=== PATIENT | female | born 1980 | race African-American/Black ===

== ENCOUNTER 2017-03-25 09:16 | Emergency (ER) | payer MEDICARE, MEDICAID ==
[~2017-03-25] VITALS: Ht 165.1 cm; Wt 55.0 kg
[~2017-03-25 09:16] MED LIST: DIVA500T3; QUET400T
[2017-03-25 09:33] VITALS: BP 149/104
== END 2017-03-25 14:56 | disposition left against medical advice (07) ==
LOC: ER 14:48
DX: Z53.21 Procedure and treatment not carried out due to patient leaving prior to being seen by health care provider (principal)

== ENCOUNTER 2017-04-14 20:51 | Emergency (ER) | payer MEDICARE, MEDICAID ==
[~2017-04-14] VITALS: Ht 172.7 cm; Wt 68.0 kg
[2017-04-14 20:56] VITALS: BP 148/98
== END 2017-04-15 04:09 | disposition left against medical advice (07) ==
LOC: ER 21:02
DX: R53.1 Weakness (principal); Z53.21 Procedure and treatment not carried out due to patient leaving prior to being seen by health care provider

== ENCOUNTER 2017-04-15 00:14 | Emergency (ER) | payer MEDICARE, MEDICAID | END 2017-04-15 07:38 | disposition left against medical advice (07) | LOC: ER 07:37 | DX: R07.9 Chest pain, unspecified (principal); Z53.21 Procedure and treatment not carried out due to patient leaving prior to being seen by health care provider ==

== ENCOUNTER 2017-08-16 22:51 | Emergency (ER) | payer MEDICARE, MEDICAID ==
[~2017-08-16] VITALS: Ht 170.2 cm; Wt 4.0 kg
[2017-08-16] MEDS ORDERED: SODIUM CHLORIDE 0.9% 1,000 ML IV ONE (23:47)
[2017-08-17] MEDS ORDERED: LORAZEPAM 2MG/ML CPJ IV ONE
[2017-08-17] MEDS ORDERED: DIPHENHYDRAMINE 50MG/ML VIAL IV ONE
[2017-08-17 01:13] LABS: CLARITY URINE CLEAR (CLEAR); COLOR URINE YELLOW (YELLOW); KETONES URINE NEGATIVE (NEGATIVE); LEUKOCYTE ESTERASE URINE NEGATIVE (NEGATIVE); NITRITE URINE NEGATIVE (NEGATIVE); OCCULT BLOOD URINE NEGATIVE (NEGATIVE); PH URINE 6.5 (4.5-8.0); PROTEIN URINE NEGATIVE (NEGATIVE); SPECIFIC GRAVITY URINE 1.009 (1.005-1.030); UROBILINOGEN URINE 0.2 E.U./dL (0.2-1.0)
[2017-08-17 01:31] LABS: BASOPHILS % 1.5 % (0.0-2.0); EOSINOPHILS % 0.6 % (0.0-5.0); HEMOGLOBIN. 7.7 g/dL (12.0-16.0); LYMPHOCYTES % 32.6 % (20.0-50.0); MEAN CORPUSCULAR HEMOGLOBIN 20.6 pg (28.0-32.0); MEAN CORPUSCULAR VOLUME 69.2 fL (81.0-99.0); MEAN PLATELET VOLUME 7.7 fl (7.4-10.4); MONOCYTES % 10.4 % (2.0-8.0); NEUTROPHILS % 54.9 % (40.0-76.0); PLATELET 227 x1000/uL (130-400); RED BLOOD CELL COUNT 3.75 mill/uL (4.2-5.4); RED CELL DISTRIBUTION WIDTH 23.8 % (11.6-14.6)
[2017-08-17 01:47] LABS: HCG SCREEN NEGATIVE
[2017-08-17 02:02] LABS: CARBON DIOXIDE 24 mEq/L (21-32); CHLORIDE 110 mEq/L (98-107); ETHANOL BLOOD 144 mg/dL
[2017-08-17 02:31] LABS: *AMPHETAMINES SCREEN URINE NEGATIVE (NEGATIVE); *BARBITURATES SCREEN URINE NEGATIVE (NEGATIVE); *BENZODIAZEPINES SCREEN URINE NEGATIVE (NEGATIVE); *COCAINE SCREEN URINE NEGATIVE (NEGATIVE); CANNABINOID URINE SCREEN NEGATIVE (NEGATIVE); METHADONE URINE SCREEN NEGATIVE (NEGATIVE); OPIATES URINE SCREEN NEGATIVE (NEGATIVE); PHENCYCLIDINE URINE SCREEN PRESUMTIVE POSITIVE (NEGATIVE)
[2017-08-17 10:34] VITALS: BP 138/59
== END 2017-08-17 11:25 | disposition home or self-care (01) ==
LOC: ER 23:05
DX: F10.129 Alcohol abuse with intoxication, unspecified (principal); Y90.6 Blood alcohol level of 120-199 mg/100 ml
CPT/HCPCS: 36415; 80053; 80305; 80307; 80329; 81003; 84703; 85025; 96361; 96374; 96375; 99285; G0482; J1200; J2060; J7030; A4315

== ENCOUNTER 2020-01-12 15:29 | Emergency (ER) | payer MEDICARE, MEDICAID ==
[~2020-01-12] VITALS: Ht 162.6 cm; Wt 56.0 kg
[2020-01-12 15:30] VITALS: BP 126/72
[2020-01-12] MEDS ORDERED: LIDOCAINE HCL 1% 20ML VIAL (Pyxis) INJ INFIL ONE (16:00)
== END 2020-01-12 16:55 | disposition left against medical advice (07) ==
LOC: ER 15:29
DX: L60.0 Ingrowing nail (principal)
CPT/HCPCS: 99283

== ENCOUNTER 2020-12-16 06:55 | Emergency (ER) | payer MEDICARE, MEDICAID ==
[~2020-12-16] VITALS: Ht 170.2 cm; Wt 91.0 kg
[2020-12-16] MEDS ORDERED: IBUPROFEN 800MG TABLET PO ONE (07:45)
[2020-12-16 08:12] VITALS: BP 132/85
== END 2020-12-16 08:43 | disposition left against medical advice (07) ==
LOC: ER 06:59
DX: M79.89 Other specified soft tissue disorders (principal); D64.9 Anemia, unspecified; Z79.899 Other long term (current) drug therapy; Z98.890 Other specified postprocedural states
CPT/HCPCS: 99281

== ENCOUNTER 2022-01-28 19:06 | Emergency (ER) | payer MEDICARE, MEDICAID ==
[~2022-01-28] VITALS: Ht 170.2 cm; Wt 80.0 kg
[2022-01-28 19:09] VITALS: BP 136/76
[2022-01-28 20:11] LABS: CHLORIDE 106 mEq/L (98-107)
[2022-01-28 20:12] LABS: BASOPHILS % 0.7 % (0.0-2.0); EOSINOPHILS % 0.7 % (0.0-5.0); HEMATOCRIT. 33.9 % (36.0-48.0); HEMOGLOBIN. 10.8 g/dL (12.0-16.0); LYMPHOCYTES % 24.2 % (20.0-50.0); MEAN CORPUSCULAR HEMOGLOBIN 25.6 pg (28.0-32.0); MEAN CORPUSCULAR VOLUME 80.4 fL (81.0-99.0); MEAN PLATELET VOLUME 7.5 fl (7.4-10.4); MONOCYTES % 8.9 % (2.0-8.0); NEUTROPHILS % 65.5 % (40.0-76.0); PLATELET 457 x1000/uL (130-400); RED BLOOD CELL COUNT 4.22 mill/uL (4.2-5.4); RED CELL DISTRIBUTION WIDTH 23.6 % (11.6-14.6)
[2022-01-28 20:20] LABS: HCG SCREEN NEGATIVE
[2022-01-28 21:11] LABS: PLATELET ESTIMATE INCREASED
[2022-01-28 23:16] LABS: CLARITY URINE CLEAR (CLEAR); COLOR URINE YELLOW (YELLOW); KETONES URINE NEGATIVE (NEGATIVE); LEUKOCYTE ESTERASE URINE NEGATIVE (NEGATIVE); NITRITE URINE NEGATIVE (NEGATIVE); OCCULT BLOOD URINE NEGATIVE (NEGATIVE); PROTEIN URINE NEGATIVE (NEGATIVE); SPECIFIC GRAVITY URINE 1.003 (1.005-1.030); UROBILINOGEN URINE 0.2 E.U./dL (0.2-1.0)
== END 2022-01-29 00:13 | disposition home or self-care (01) ==
LOC: ER 19:06
DX: R10.9 Unspecified abdominal pain (principal); F32.A Depression, unspecified; D64.9 Anemia, unspecified; Z98.890 Other specified postprocedural states; Z59.00 Homelessness unspecified
CPT/HCPCS: 36415; 80053; 81003; 84703; 85025; 99283